=== PATIENT | male | born 1985 | race Caucasian/White ===

== ENCOUNTER 2018-03-16 05:29 | Day surgery (SDC) | payer OTHER ==
[2018-03-16] MEDS ORDERED: NEOSTIGMINE 3 MG/3 ML SYRINGE (07:20)
[2018-03-16] MEDS ORDERED: PROPOFOL 20 ML (07:20)
[2018-03-16] MEDS ORDERED: DEXAMETHASONE 4 MG/ML 1 ML INJ (07:20)
[2018-03-16] MEDS ORDERED: ONDANSETRON 4 MG INJ (07:20)
[2018-03-16] MEDS ORDERED: FENTAnyl 50 MCG/ML VIAL ×2 (07:20→08:19)
[2018-03-16] MEDS ORDERED: ROCURONIUM 50 MG INJ (07:20)
[2018-03-16] MEDS ORDERED: GLYCOPYRROLATE 0.4 MG INJ (07:20)
[2018-03-16] MEDS ORDERED: CEFAZOLIN 1 GM INJ (07:20)
[2018-03-16] MEDS ORDERED: MIDAZOLAM 1 MG/ML 2 ML INJ (07:20)
[2018-03-16] MEDS ORDERED: ROPIVACAINE 0.5 % 30 ML VIAL (07:22)
[2018-03-16 07:46] LABS: INR 0.87; PROTIME 11.9 Sec (11.9-14.9); PT RATIO 0.9
[2018-03-16 07:53] LABS: PARTIAL THROMBOPLASTIN TIME 24.4 Sec (25.0-35.0)
[2018-03-16] MEDS ORDERED: OXYCODONE/ACETAMINOPHEN (5/325) TAB PO ×2 (09:00)
[2018-03-16] MEDS ORDERED: ALBUTEROL 0.083% (NEB) 2.5 MG/3 ML AMP HHN (09:00)
[2018-03-16] MEDS ORDERED: IPRATROPIUM (NEB) 0.5 MG/2.5 ML AMP HHN (09:00)
[2018-03-16] MEDS ORDERED: FENTAnyl 50 MCG/ML VIAL IV ×3 (09:00)
[2018-03-16] MEDS ORDERED: MEPERIDINE 25 MG INJ IV (09:00)
[2018-03-16] MEDS ORDERED: HYDROmorphONE 1 MG/5 ML IV SYRINGE IV ×2 (09:00)
[2018-03-16] MEDS ORDERED: TRIMETHOBENZAMIDE 100 MG/ML VIAL IM (09:00)
[2018-03-16] MEDS ORDERED: EPHEDrine SULFATE 50 MG/5 ML SYG IV (09:00)
[2018-03-16] MEDS ORDERED: DIPHENHYDRAMINE 50 MG INJ IV (09:00)
[2018-03-16] MEDS ORDERED: LABETALOL HCL 20MG INJ IV (09:00)
[2018-03-16] MEDS ORDERED: hydrALAzine 20 MG INJ IV (09:00)
[2018-03-16] MEDS ORDERED: MIDAZOLAM 1 MG/ML 2 ML INJ IV (09:00)
[2018-03-16] MEDS: POLYMYXIN/BACITRACIN 1L IRRIG (09:08)
[2018-03-16] MEDS: EPINEPHrine 1 MG/ML 30 ML INJ INJ (09:08)
[2018-03-16] MEDS ORDERED: EPINEPHrine 1 MG/ML 30 ML INJ INJ (09:30)
[2018-03-16] MEDS: morphine SULFATE/PF (10 MG/10 ML) INJ (11:00)
[2018-03-16] MEDS ORDERED: morphine SULFATE/PF (10 MG/10 ML) INJ (11:06)
[2018-03-16] MEDS ORDERED: SODIUM CL BACTERIOSTATIC 30 ML INJ (11:07)
[2018-03-16] MEDS ORDERED: HYDROCODONE/APAP (5/325) TAB PO ×2 (12:00)
[2018-03-16] MEDS: ONDANSETRON 4 MG INJ IV (12:55)
[2018-03-16] MEDS: HYDROmorphONE 1 MG/5 ML IV SYRINGE IV (12:56)
== END 2018-03-16 14:40 | disposition home or self-care (01) ==
LOC: SDS 05:29
DX: S83.512D Sprain of anterior cruciate ligament of left knee, subsequent encounter (principal); X58.XXXD Exposure to other specified factors, subsequent encounter; M23.212 Derangement of anterior horn of medial meniscus due to old tear or injury, left knee; M23.222 Derangement of posterior horn of medial meniscus due to old tear or injury, left knee
CPT/HCPCS: 29881; 85610; 85730

== ENCOUNTER 2018-11-29 08:47 | Emergency (ER) | payer OTHER ==
[2018-11-29] MEDS: AZITHROMYCIN 500 MG TAB PO (09:52)
[2018-11-29] MEDS: CEFTRIAXONE 250 MG INJ IM (09:53)
[2018-11-29] MEDS: FLUCONAZOLE 150 MG TAB PO (10:09)
== END 2018-11-29 10:38 | disposition home or self-care (01) ==
LOC: FTE 08:47
DX: N50.9 Disorder of male genital organs, unspecified (principal); F17.210 Nicotine dependence, cigarettes, uncomplicated
CPT/HCPCS: 87591; 96372; 99284-25